=== PATIENT | female | born 1965 | race Caucasian/White ===

== ENCOUNTER 2023-05-08 07:45 | Emergency (ER) | payer BC, OTHER ==
[~2023-05-08] VITALS: Ht 162.6 cm; Wt 70.8 kg
[~2023-05-08 07:45] MED LIST: DOCU100C58 PO; TOLT1TAB2 PO
[2023-05-08 07:57] VITALS: BP 141/69; TEMP 98.1
[2023-05-08] MEDS ORDERED: DEXT15DR6 EACHEYE (08:21)
[2023-05-08] MEDS ORDERED: VALA100026 PO (08:21)
[2023-05-08] MEDS ORDERED: ERYT3.5O9 LEFTEYE (08:21)
[2023-05-08] MEDS ORDERED: PRED20TA PO (08:21)
[2023-05-08 08:29] VITALS: O2SAT 98
== END 2023-05-08 08:29 | disposition home or self-care (01) ==
LOC: ER 08:10
DX: G51.0 Bell's palsy (principal); H04.122 Dry eye syndrome of left lacrimal gland

== ENCOUNTER 2023-11-07 20:56 | Emergency (ER) | payer BC ==
[~2023-11-07] VITALS: Ht 162.6 cm; Wt 69.9 kg
[~2023-11-07 20:56] MED LIST changes: +DEXT15DR6 EACHEYE; +ERYT3.5O9 LEFTEYE; +PRED20TA PO; +VALA100026 PO
[2023-11-07 23:00] VITALS: BP 161/80; TEMP 97.9; O2SAT 100
[2023-11-07] MEDS ORDERED: ONDA4TAB5 PO (23:53)
[2023-11-07] MEDS ORDERED: KETO10TA2 PO (23:53)
[2023-11-07] MEDS ORDERED: ONDANSETRON 4 MG TAB.RAPDIS ONE (23:56)
[2023-11-07] MEDS ORDERED: KETOROLAC TROMETHAMINE 15 MG/ML VIAL ONE ×2 (23:56→23:59)
[2023-11-08] MEDS ORDERED: ONDANSETRON 4 MG TAB.RAPDIS ONE ×2 (00:03)
[2023-11-08] MEDS: KETOROLAC TROMETHAMINE 15 MG/ML VIAL IM ONE (00:05)
[2023-11-08] MEDS: ONDANSETRON 4 MG TAB.RAPDIS PO ONE (00:05)
== END 2023-11-08 00:09 | disposition home or self-care (01) ==
LOC: ER 20:57
DX: R51.9 Headache, unspecified (principal); Z79.899 Other long term (current) drug therapy
CPT/HCPCS: 99283; 96372; J1885 ×2; Q0162 ×2

== ENCOUNTER 2024-10-27 17:16 | Emergency (ER) | payer BC ==
[~2024-10-27] VITALS: Ht 162.6 cm; Wt 72.6 kg
[~2024-10-27 17:16] MED LIST changes: +KETO10TA2 PO; +ONDA4TAB5 PO
[2024-10-27 17:51] LABS: BASOPHILS % (AUTO) 0.5 % (0.0-2.0); EOSINOPHILS # (AUTO) 0.1 K/uL (0.0-0.7); EOSINOPHILS % (AUTO) 0.6 % (0.0-6.0); HEMATOCRIT 38 % (33-45); HEMOGLOBIN 12.7 g/dL (11.5-14.8); LYMPHOCYTES # (AUTO) 2.9 K/uL (0.8-4.8); LYMPHOCYTES % (AUTO) 32.9 % (20.0-44.0); MEAN CORPUSCULAR HEMOGLOBIN 29 PG (26.0-33.0); MEAN CORPUSCULAR HGB CONC 33 g/dl (31.0-36.0); MEAN CORPUSCULAR VOLUME 88 fL (82-100); MONOCYTES # (AUTO) 0.7 K/uL (0.1-1.30); MONOCYTES % (AUTO) 7.6 % (2.0-12.0); NEUTROPHILS # (AUTO) 5.1 K/uL (1.8-8.9); NEUTROPHILS % (AUTO) 58.4 % (43.0-81.0); PLATELET COUNT (AUTO) 111 K/uL (150-450); RED BLOOD CELL COUNT(AUTO) 4.35 MIL/uL (4.0-5.2); RED CELL DISTRIBUTION WIDTH 13.3 % (11.5-15.0); WHITE BLOOD COUNT (AUTO) 8.8 K/uL (4.3-11.0)
[2024-10-27 17:59] LABS: CALCIUM, SERUM 8.9 mg/dL (8.5-10.1); CARBON DIOXIDE 27 mmol/L (21-32); CHLORIDE 105 mmol/L (98-107); CREATININE 0.8 mg/dL (0.6-1.3); GLUCOSE 175 mg/dL (74-106); POTASSIUM 3.2 mmol/L (3.5-5.1); SODIUM SERUM 137 mmol/L (136-145); UREA NITROGEN, BLOOD 17 mg/dL (7-18)
[2024-10-27] MEDS ORDERED: HYDR-500 PO (18:38)
[2024-10-27 19:17] VITALS: BP 139/81; O2SAT 99
== END 2024-10-27 19:20 | disposition home or self-care (01) ==
LOC: ER 17:24
DX: R00.2 Palpitations (principal); R20.0 Anesthesia of skin; R20.2 Paresthesia of skin; Z79.52 Long term (current) use of systemic steroids; Z79.624 Long term (current) use of inhibitors of nucleotide synthesis
CPT/HCPCS: 36415; 71045-TC; 80048-TC; 84484-TC; 85025-TC